=== PATIENT | female | born 1965 | race Two or more races ===

== ENCOUNTER 2024-04-09 16:38 | Emergency (ER) | payer MEDICAID, SELFPAY ==
[2024-04-09 17:06] VITALS: BP 135/79; PULSE 71; RESP 18; TEMP 36.8; O2SAT 97; BMI 34.8
--- NOTE | 2024-04-09 17:09 | XR_ITS ---
Examination: Knee, right , 3 views Technique: Knee AP, lateral, oblique 3 views Date and time of exam: 1716 hrs. Indications: Injury to the knee yesterday with knee pain. Findings: No fracture or dislocation Moderate narrowing medial joint space Small knee effusion Impression: No fracture or dislocation
--- NOTE | 2024-04-09 17:10 | EDNOTE_ITS ---
Lower Extremity Injury RME/HPI General Chief Complaint: Ankle/Foot Injury Stated Complaint: RIGHT FOOT PAIN X 2 WEEKS Time Seen by Provider: 04/09/24 16:44 Arrival date/time: 04/09/24 16:38 59 y.o. female reports with c/o right knee pain that radiates to right hip. Patient states that she was dancing and when she twisted she felt the pain in the knee no trauma no numbness or tingling loss of range of motion and no weakness. Patient states that she has been taking aspirin with no improvement of pain Limitations: no limitations Related Data Previous Rx's ?Medication ?Instructions ?Recorded blood ketone glucose monitor #1 ea 04/22/23 lancets 33 gauge #100 ea 04/22/23 lancets 30 gauge (Advocate Lancet) #200 ea 07/06/23 gabapentin 300 mg capsule 300 mg PO TID PRN nerve pain #90 08/22/23 caps fenofibrate 54 mg tablet 54 mg PO QDAY #90 tabs 11/14/23 metformin 500 mg tablet 500 mg PO BID 90 days #180 tabs 11/14/23 diclofenac sodium 1 % topical gel 2 g topical QID #100 grams 12/30/23 (Voltaren Arthritis Pain) blood sugar diagnostic (Blood #100 ea 01/10/24 Glucose Test strips) diclofenac sodium 1 % topical gel 2 g topical QID #100 grams 03/22/24 (Voltaren Arthritis Pain) lidocaine 5 % topical patch 1 patch topical QDAY #30 ea 03/22/24 meloxicam 7.5 mg tablet 7.5 mg PO QDAY #30 tabs 03/22/24 etodolac 400 mg tablet 400 mg PO BID PRN pain #30 tabs 04/09/24 Allergies Allergy/AdvReac Type Severity Reaction Status Date / Time No Known Allergies Allergy Verified 03/22/24 09:41 Review of Systems Constitutional Constitutional: Denies chills, Denies fatigue and Denies fever(s) Musculoskeletal Musculoskeletal: Reports arthralgias, Denies deformity, Denies joint swelling, Denies numbness and Denies tingling Integumentary/Breasts Skin/Breast: Denies unusual bruising and Denies wounds Neurologic Neurologic: Denies numbness and Denies tingling Endocrine Endocrine: Denies fatigue Past Medical History Past Medical History NEUROLOGIC: Negative Seizures CARDIAC: Negative Congestive Heart Failure RESPIRATORY: Negative Chronic Obstructive Pulmonary Disease (COPD) GENITOURINARY: Negative Renal Disease ENDOCRINE: Negative Diabetes Mellitus Type 1 or Diabetes Mellitus Type 2 OTHER HISTORY: Negative Blood Transfusions, Blood Transfusion Reaction, Anesthesia Reactions, Organ Transplant, Chemotherapy, Radiation Therapy or Hyperbaric Therapy Surgical History SURGICAL: Negative Organ Transplant Social History SMOKING STATUS: Never smoker SECOND HAND EXPOSURE: No ED Exam General Limitations: Present no limitations General appearance: Present alert and in no apparent distress Expanded Lower Extremity Exam Knee exam: Present normal inspection, full ROM and tenderness (Mild medial joint line tenderness right knee); Absent swelling, deformity, pain with valgus, laxity with valgus or pain with varus Neurological Exam Neurological exam: Present alert, oriented X3 and CN II-XII intact Psychiatric Psychiatric exam: Present normal affect and normal mood Skin Skin exam: Present warm, dry, intact and normal color Course Course Course Narrative: X-ray of the right knee is negative for fractures or dislocations Quality Measures none Orders Category Date Time Status immobilizer [Splint / Immobilizer] STAT Care 04/09/24 22:22 Active XR knee RT 3V Stat Exams 04/09/24 17:09 Completed Ibuprofen Tab [Motrin Tab] Med 04/09/24 18:23 Discontinued 800 mg PO X1 ONE Vital Signs Vital signs: Vital Signs Temperature 98.2 F 04/09/24 17:06 Pulse Rate 71 04/09/24 17:06 Respiratory Rate 18 04/09/24 17:06 Blood Pressure 135/79 H 04/09/24 17:06 Pulse Oximetry (%) 97 04/09/24 17:06 Oxygen Delivery Method Room Air 04/09/24 17:06 Extremity Injury, Lower Patient data External records reviewed:: None Clinical information provided by:: patient Social determinants that could affect healthcare access:: none Patient has the following chronic illnesses:: none How is presenting disease/condition affected by chronic disease/condition?: no chronic disease Evaluation data The following diagnostics were reviewed and interpreted by me:: radiology exam(s) Lab and/or radiology exams considered but not ordered:: none Interpretation Summary: Negative for fractures or dislocations of the right knee Medications / Prescriptions Medications or Prescriptions considered but not ordered:: none Medication administrations:: Medication Administration History Discontinued Medications Ibuprofen (Ibuprofen Tab 400 Mg Tablet) 800 mg PO X1 ONE Stop: 04/09/24 18:24 Last Admin: 04/09/24 18:36 Dose: 800 mg Documented By: OA Ibuprofen 800 mg p.o. x 1 Consultations Consultation(s) initiated? (list below): No Diagnosis Most likely diagnosis given after review of the tests above:: Right knee strain/sprain Admission Indicated Admission indicated?: not indicated Admission Request Was there a request for admission?: No Disposition Plan Disposition Plan: Discharge Discharge Attestation Discharge Attestation: The patient and all family members were given an opportunity to ask questions and understood the discharge instructions. Discharge instructions specifically effects, indications for sooner follow up or return to the emergency department, and the expected course of current diagnosis. Patient condition: Stable Discharge Plan Plan Patient Disposition: HOME (Self Care) Prescriptions/Referrals Prescriptions/Med Rec: New etodolac 400 mg tablet 400 mg PO BID PRN (Reason: pain) Qty: 30 0RF No Action fenofibrate 54 mg tablet 54 mg PO QDAY Qty: 90 1RF metformin 500 mg tablet 500 mg PO BID 90 Days Qty: 180 1RF diclofenac sodium [Voltaren Arthritis Pain] 1 % gel 2 g topical QID Qty: 100 0RF Rx Instructions: apply to single elbow, wrist or hand; for hand includes palm/fingers/back of hand (DME) lancets [Advocate Lancet] 30 gauge misc See Rx Instructions .Route Qty: 200 1RF Rx Instructions: As directed gabapentin 300 mg capsule 300 mg PO TID PRN (Reason: nerve pain) Qty: 90 0RF meloxicam 7.5 mg tablet 7.5 mg PO QDAY Qty: 30 0RF Rx Instructions: Directions in Citizen Of [place] lidocaine 5 % adhesive patch,medicated 1 patch topical QDAY Qty: 30 0RF Rx Instructions: leave on most painful area for up to 12 hrs diclofenac sodium [Voltaren Arthritis Pain] 1 % gel 2 g topical QID Qty: 100 0RF Rx Instructions: apply to area of concenrn (DME) blood ketone glucose monitor Device See Rx Instructions .Route Qty: 1 0RF Rx Instructions: As directed (DME) lancets 33 gauge misc See Rx Instructions .Route Qty: 100 2RF Rx Instructions: As directed (DME) Blood Glucose Test Strip See Rx Instructions .Route Qty: 100 3RF Rx Instructions: check glucose once a day Referrals: No Primary/Family,Physician [Referring Provider] - In 1 week Problem List Clinical Impression: Knee strain Patient/Caregiver Discharge Instructions Discharge Activity: activity as tolerated Education Materials: ED Knee Sprain Print Language: Citizen Of [place] Stand Alone Forms: Caroline Award Info., Patient Portal Info Letter MD Attestation MD Attestation The patient was seen by the midlevel practitioner. I, the co-signing physician, was present during the entire ER visit. While I did not physically examine the patient, I was available for consultation as needed.
[2024-04-09] MEDS: IBUPROFEN TAB 400 MG TABLET 800 MG PO (18:36)
== END 2024-04-09 18:52 | disposition home or self-care (01) ==
PROVIDERS: Emergency Provider Emergency Medicine; PCP Nurse Practitioner Primary Care
DX: S86.911A Strain of unspecified muscle(s) and tendon(s) at lower leg level, right leg, initial encounter (principal); X50.1XXA Overexertion from prolonged static or awkward postures, initial encounter
CPT/HCPCS: 73562; 99283; A9270

== ENCOUNTER → 2024-04-24 | Outpatient (BNVA) | payer MEDICAID, SELFPAY | END | disposition home or self-care (01) | PROVIDERS: PCP Nurse Practitioner Family; Referring Provider Nurse Practitioner Family; Visit Provider Nurse Practitioner Family | DX: E11.9 Type 2 diabetes mellitus without complications (principal); Z12.39 Encounter for other screening for malignant neoplasm of breast; E78.2 Mixed hyperlipidemia; Z71.2 Person consulting for explanation of examination or test findings; M25.561 Pain in right knee; Z91.148 Patient's other noncompliance with medication regimen for other reason; M19.041 Primary osteoarthritis, right hand; M19.042 Primary osteoarthritis, left hand | CPT/HCPCS: 99213 ==

== ENCOUNTER → 2024-05-07 | Outpatient (BNVA) | payer MEDICAID, SELFPAY | END | disposition home or self-care (01) | PROVIDERS: PCP Nurse Practitioner Primary Care; Referring Provider Nurse Practitioner Primary Care; Visit Provider Nurse Practitioner Primary Care | DX: E11.9 Type 2 diabetes mellitus without complications (principal); Z01.810 Encounter for preprocedural cardiovascular examination; E78.2 Mixed hyperlipidemia; Z91.199 Patient's noncompliance with other medical treatment and regimen due to unspecified reason; Z00.01 Encounter for general adult medical examination with abnormal findings; E66.9 Obesity, unspecified; Z13.1 Encounter for screening for diabetes mellitus; M19.041 Primary osteoarthritis, right hand; M19.042 Primary osteoarthritis, left hand; Z68.34 Body mass index [BMI] 34.0-34.9, adult | CPT/HCPCS: 93005; 99214 ==

== ENCOUNTER → 2024-05-22 | Outpatient (BNVA) | payer MEDICAID, SELFPAY | END | disposition home or self-care (01) | PROVIDERS: PCP Nurse Practitioner Primary Care; Referring Provider Nurse Practitioner Primary Care; Visit Provider Nurse Practitioner Primary Care | DX: M17.11 Unilateral primary osteoarthritis, right knee (principal) | CPT/HCPCS: 20610; 99213; J3301; J3490 ==

== ENCOUNTER → 2024-07-06 | Outpatient (CLI) | payer MEDICAID, SELFPAY ==
--- NOTE | 2024-07-06 14:15 | XR_ITS ---
Examination: Screening digital mammography, bilateral Computer aided detection 3-D breast Tomosynthesis, bilateral Date and time of exam: 06/28/2024, 2:02 PM Comparisons: Baseline exam. Indications: Screening Technique: Nonmagnified MLO, CC views of the breasts to been obtained, reconstructed from 3-D Tomosynthesis images. R2 computer aided detection program utilized for evaluation of suspicious masses and/or abnormal calcifications. 3-D Tomosynthesis images obtained. Technologist: Findings: There are scattered areas of fibroglandular density. Asymmetry anterior outer left breast, 2.5 cm from the nipple CC view. Otherwise, no evidence of abnormal masses or suspicious calcifications. Impression: Left asymmetry as above. Spot compression views and possible ultrasound evaluation recommended. BI-RADS category 0: Incomplete assessment; need additional imaging evaluation
== END | disposition home or self-care (01) ==
LOC: CDIM 13:55
PROVIDERS: Referring Provider Nurse Practitioner Primary Care; Visit Provider Nurse Practitioner Primary Care
DX: Z12.31 Encounter for screening mammogram for malignant neoplasm of breast (principal); R92.8 Other abnormal and inconclusive findings on diagnostic imaging of breast; N64.89 Other specified disorders of breast
CPT/HCPCS: 77063; 77067

== ENCOUNTER → 2024-08-07 | Outpatient (BNVA) | payer MEDICAID, SELFPAY | END | disposition home or self-care (01) | PROVIDERS: PCP Nurse Practitioner Primary Care; Referring Provider Nurse Practitioner Primary Care; Visit Provider Nurse Practitioner Primary Care | DX: R92.8 Other abnormal and inconclusive findings on diagnostic imaging of breast (principal) | CPT/HCPCS: 99213 ==

== ENCOUNTER 2024-08-10 05:31 | Emergency (ER) | payer MEDICAID, SELFPAY ==
[2024-08-10 05:50] VITALS: BP 156/77; PULSE 69; RESP 17; TEMP 36.7; O2SAT 96
--- NOTE | 2024-08-10 06:15 | XR_ITS ---
Examination: PA and lateral chest 2 views TECHNIQUE: Upright PA and lateral chest 2 views Exam date and time: August 10, 2024 at 0632 hours INDICATIONS: Coughing and fever beginning 5 days ago. FINDINGS: Normal heart size. Lungs are clear. The osseous structures are intact IMPRESSION: No active disease
--- NOTE | 2024-08-10 06:16 | EDNOTE_ITS ---
Upper Respiratory Inf. RME/HPI General Chief Complaint: Flu Like Symptoms Stated Complaint: FLU LIKE SYMPTOMS X4 DAYS Time Seen by Provider: 08/10/24 06:16 Source: patient Arrival date/time: 08/10/24 05:31 59-year-old female with a history of type 2 diabetes, presents to the emergency room with a chief complaint of coughing and congestion x 4 days. Mode of arrival: ambulatory Limitations: no limitations Related Data Home Medications ?Medication ?Instructions ?Recorded ?Confirmed atorvastatin 20 mg tablet 20 mg PO QHS 05/07/24 Previous Rx's ?Medication ?Instructions ?Recorded blood ketone glucose monitor #1 ea 04/22/23 lancets 33 gauge #100 ea 04/22/23 lancets 30 gauge (Advocate Lancet) #200 ea 07/06/23 gabapentin 300 mg capsule 300 mg PO TID PRN nerve pain #90 08/22/23 caps diclofenac sodium 1 % topical gel 2 g topical QID #100 grams 12/30/23 (Voltaren Arthritis Pain) blood sugar diagnostic (Blood #100 ea 01/10/24 Glucose Test strips) diclofenac sodium 1 % topical gel 2 g topical QID #100 grams 03/22/24 (Voltaren Arthritis Pain) fenofibrate 54 mg tablet 54 mg PO QDAY #90 tabs 04/24 meloxicam 7.5 mg tablet 7.5 mg PO QDAY #30 tabs 06/02 promethazine-DM 6.25 mg-15 mg/5 mL 5 ml PO Q6H PRN cou gh #473 mL 08/07/24 oral syrup benzonatate 100 mg capsule 100 mg PO BID PRN cough #14 caps 08/10/24 Allergies Allergy/AdvReac Type Severity Reaction Status Date / Time No Known Allergies Allergy Verified 08/07/24 15:39 Review of Systems Review of Systems Systems Reviewed: All systems reviewed, normal except as documented Constitutional Constitutional: Reports system reviewed and no additional complaints, except as documented, Denies fatigue, Denies fever(s), Denies headache(s) and Denies weakness Eyes Eyes: Reports system reviewed and no additional complaints, except as documented, Denies blurry vision and Denies change in vision ENT Ears, Nose, Mouth, and Throat: Reports system reviewed and no additional complaints, except as documented, Denies otalgia, Denies headache(s), Denies n jam congestion, Denies throat swelling and Denies vertigo Cardiovascular Cardiovascular: Reports system reviewed and no additional complaints, except as documented, Denies chest pain, Denies dyspnea and Denies dyspnea on exertion Respiratory Respiratory: Reports system reviewed and no additional complaints, except as documented, Reports chest congestion, Reports cough, Denies dyspnea, Denies dyspnea on exertion and Denies wheezing Gastrointestinal Gastrointestinal: Reports system reviewed and no additional complaints, except as documented, Denies abdominal pain, Denies cramping, Denies nausea and Denies vomiting Genitourinary Genitourinary: Reports system reviewed and no additional complaints, except as documented Musculoskeletal Musculoskeletal: Reports system reviewed and no additional complaints, except as documented and Denies back pain Integumentary/Breasts Skin/Breast: Reports system reviewed and no additional complaints, except as documented and Denies wounds Neurologic Neurologic: Reports system reviewed and no additional complaints, except as documented, Denies confusion, Denies headache(s), Denies lack of coordination, Denies vertigo and Denies weakness Psychiatric Psychiatric: Reports system reviewed and no additional complaints, except as documented, Denies anxiety, Denies confusion, Denies depression, Denies paranoia, Denies suicidal ideation and Denies tactile hallucinations Endocrine Endocrine: Reports system reviewed and no additional complaints, except as documented and Denies fatigue Hematologic/Lymphatic Hematologic/Lymphatic: Reports system reviewed and no additional complaints, except as documented and Denies lymphadenopathy Allergic/Immunologic Allergic/Immunologic: Reports system reviewed and no additional complaints, except as documented, Denies throat swelling, Denies urticaria and Denies wheezing Past Medical History Past Medical History NEUROLOGIC: Negative Seizures CARDIAC: Negative Congestive Heart Failure RESPIRATORY: Negative Chronic Obstructive Pulmonary Disease (COPD) GENITOURINARY: Negative Renal Disease ENDOCRINE: Negative Diabetes Mellitus Type 1 or Diabetes Mellitus Type 2 OTHER HISTORY: Negative Blood Transfusions, Blood Transfusion Reaction, Anesthesia Reactions, Organ Transplant, Chemotherapy, Radiation Therapy or Hyperbaric Therapy Surgical History SURGICAL: Negative Organ Transplant Social History SMOKING STATUS: Never smoker SECOND HAND EXPOSURE: No ED Exam General Limitations: Present no limitations General appearance: Present alert and in no apparent distress Head Head exam: Present atraumatic Eye Eye exam: Present normal appearance, PERRL and EOMI ENT ENT exam: Present normal exam, normal oropharynx and mucous membranes moist Neck Neck exam: Present normal inspection, full ROM and trachea midline Chest Chest inspection: Present normal inspection and symmetric chest wall rise Respiratory Respiratory exam: Present normal lung sounds bilaterally; Absent respiratory distress, wheezes, stridor, accessory muscle use or prolonged expiratory phase Cardiovascular Cardiovascular exam: Present regular rate, normal rhythm and normal heart sounds; Absent tachycardia Abdominal Exam Abdominal exam: Present soft and normal bowel sounds Extremities Exam Extremities exam: Present normal inspection and full ROM Back Exam Back exam: Present normal inspection and full ROM Neurological Exam Neurological exam: Present alert, oriented X3 and CN II-XII intact Psychiatric Psychiatric exam: Present normal affect and normal mood Skin Skin exam: Present warm, dry, intact and normal color Course Quality Measures none Orders Category Date Time Status Bedside COVID-19 Antigen Test NOW Care 08/10/24 05:37 Active Bedside COVID-19 Antigen Test NOW Care 08/10/24 06:15 Completed Bedside Influenza A&B Antigen Test NOW Care 08/10/24 05:37 Completed Bedside Influenza A&B Antigen Test NOW Care 08/10/24 06:15 Completed XR chest 2V Stat Exams 08/10/24 06:15 Completed Vital Signs Vital signs: Vital Signs Temperature 98.1 F 08/10/24 05:50 Pulse Rate 69 08/10/24 05:50 Respiratory Rate 17 08/10/24 05:50 Blood Pressure 156/77 H 08/10/24 05:50 Pulse Oximetry (%) 96 08/10/24 05:50 Oxygen Delivery Method Room Air 08/10/24 05:50 O2 saturation 96% within normal limits Upper Respiratory Infection MDM Narrative MDM Narrative:: 59-year-old female with a history of type 2 diabetes, presents to the emergency room with a chief complaint of coughing and congestion x 4 days. Patient is hemodynamically stable and in no apparent distress. She is not tachycardic not tachypneic afebrile and her O2 saturation is 96% on room air Physical examination shows clear bilateral lung sounds there is no wheezing or any abnormal breath sounds Chest x-ray was negative for any pneumonic infiltrates. COVID-19 and influenza were both negative Patient was discharged and educated to follow-up with primary care provider in the next 24 to 48 hours and return to the emergency room for any evidence of worsening signs or symptoms Patient data External records reviewed:: [facility] previous records Clinical information provided by:: patient Social determinants that could affect healthcare access:: none Patient has the following chronic illnesses:: Type 2 diabetes How is presenting disease/condition affected by chronic disease/condition?: uneffected by Evaluation data The following diagnostics were reviewed and interpreted by me:: lab results and radiology exam(s) Lab and/or radiology exams considered but not ordered:: Labs and radiology exams considered and ordered Interpretation Summary: Chest x-ray-no pneumonic infiltrates Medications / Prescriptions Medications or Prescriptions considered but not ordered:: No medication given Medication administrations:: No medication given Consultations Consultation(s) initiated? (list below): No Diagnosis Upper Respiratory Differential Diagnosis: upper respiratory infection, viral infection, bronchitis and influenza Most likely diagnosis given after review of the tests above:: Upper respiratory infection Admission Indicated Admission indicated?: not indicated Admission Request Was there a request for admission?: No Disposition Plan Disposition Plan: Discharge Discharge Attestation Discharge Attestation: The patient and all family members were given an opportunity to ask questions and understood the discharge instructions. Discharge instructions specifically effects, indications for sooner follow up or return to the emergency department, and the expected course of current diagnosis. Patient condition: Stable Discharge Plan Plan Patient Disposition: HOME (Self Care) Disposition Comment: Stable Prescriptions/Referrals Prescriptions/Med Rec: New benzonatate 100 mg capsule 100 mg PO BID PRN (Reason: cough) Qty: 14 0RF No Action diclofenac sodium [Voltaren Arthritis Pain] 1 % gel 2 g topical QID Qty: 100 0RF Rx Instructions: apply to single elbow, wrist or hand; for hand includes palm/fingers/back of hand atorvastatin 20 mg tablet 20 mg PO QHS (DME) lancets [Advocate Lancet] 30 gauge misc See Rx Instructions .Route Qty: 200 1RF Rx Instructions: As directed gabapentin 300 mg capsule 300 mg PO TID PRN (Reason: nerve pain) Qty: 90 0RF diclofenac sodium [Voltaren Arthritis Pain] 1 % gel 2 g topical QID Qty: 100 0RF Rx Instructions: apply to area of concenrn fenofibrate 54 mg tablet 54 mg PO QDAY Qty: 90 0RF promethazine-DM 6.25-15 mg/5 mL syrup 5 ml PO Q6H PRN (Reason: cough) Qty: 473 0RF meloxicam 7.5 mg tablet 7.5 mg PO QDAY Qty: 30 0RF Rx Instructions: Directions in [place] (DME) blood ketone glucose monitor Device See Rx Instructions .Route Qty: 1 0RF Rx Instructions: As directed (DME) lancets 33 gauge misc See Rx Instructions .Route Qty: 100 2RF Rx Instructions: As directed (DME) Blood Glucose Test Strip See Rx Instructions .Route Qty: 100 3RF Rx Instructions: check glucose once a day Referrals: Koby LUCIANO,Di Esteves, [employer] OFFICER [Primary Care Provider] - In 1 week Problem List Clinical Impression: Upper respiratory infection, viral Patient/Caregiver Discharge Instructions Education Materials: ED URI, Viral, No Abx (Adult) Additional Instructions: Por favor, consulte con guo m?dico de cabecera en las pr?ximas 24 a 48 horas. Violetta pruebas de influenza y COVID-19 dieron negativo. Guo radiograf?a de t?rax fue negativa para neumon?a. El tratamiento es el control de los s?ntomas. Contin?e tomando Tylenol e ibuprofeno para controlar la fiebre. Aumente guo ingesta de l?quidos por v?a oral. Ante cualquier signo de empeoramiento de los signos o s?ntomas, acuda a urgencias de inmediato. Print Language: [place] Stand Alone Forms: Caroline Award Info., Patient Portal Info Letter PA/[facility]CARE OFFICER Supervising Physician SANJEEV/[employer] OFFICER Supervising Physician: Dr Combs
== END 2024-08-10 08:02 | disposition home or self-care (01) ==
PROVIDERS: Emergency Provider Emergency Medicine; PCP Nurse Practitioner Family
DX: J06.9 Acute upper respiratory infection, unspecified (principal); E11.9 Type 2 diabetes mellitus without complications
CPT/HCPCS: 71046; 87400; 87811; 99283

== ENCOUNTER → 2024-08-14 | Outpatient (BNVA) | payer MEDICAID, SELFPAY | END | disposition home or self-care (01) | PROVIDERS: PCP Nurse Practitioner Primary Care; Referring Provider Nurse Practitioner Primary Care; Visit Provider Nurse Practitioner Primary Care | DX: E11.9 Type 2 diabetes mellitus without complications (principal); E78.2 Mixed hyperlipidemia; Z71.2 Person consulting for explanation of examination or test findings; J30.2 Other seasonal allergic rhinitis | CPT/HCPCS: 96372; 99214; J3301 ==

== ENCOUNTER → 2024-11-06 | Outpatient (BNVA) | payer MEDICAID, SELFPAY | END | disposition home or self-care (01) | PROVIDERS: PCP Nurse Practitioner Family; Referring Provider Nurse Practitioner Family; Visit Provider Nurse Practitioner Family | DX: E78.2 Mixed hyperlipidemia (principal); K21.9 Gastro-esophageal reflux disease without esophagitis | CPT/HCPCS: 99212; G0463 ==

== ENCOUNTER → 2024-11-14 | Outpatient (BNVA) | payer MEDICAID, SELFPAY | END | disposition home or self-care (01) | PROVIDERS: PCP Nurse Practitioner Family; Referring Provider Nurse Practitioner Family; Visit Provider Nurse Practitioner Family | DX: G47.00 Insomnia, unspecified (principal); E66.9 Obesity, unspecified; E11.9 Type 2 diabetes mellitus without complications; E66.09 Other obesity due to excess calories; Z68.35 Body mass index [BMI] 35.0-35.9, adult; Z28.21 Immunization not carried out because of patient refusal; Z91.148 Patient's other noncompliance with medication regimen for other reason | CPT/HCPCS: 99215 ==

== ENCOUNTER → 2024-11-30 | Outpatient (BNVA) | payer MEDICAID, SELFPAY | END | disposition home or self-care (01) | PROVIDERS: PCP Nurse Practitioner Primary Care; Referring Provider Nurse Practitioner Primary Care; Visit Provider Nurse Practitioner Primary Care | DX: E11.9 Type 2 diabetes mellitus without complications (principal); E55.9 Vitamin D deficiency, unspecified; E78.2 Mixed hyperlipidemia | CPT/HCPCS: 99212; G0463 ==

== ENCOUNTER → 2025-03-13 | Outpatient (BNVA) | payer MEDICAID, SELFPAY | END | disposition home or self-care (01) | PROVIDERS: PCP Nurse Practitioner Primary Care; Referring Provider Nurse Practitioner Primary Care; Visit Provider Nurse Practitioner Primary Care | DX: E11.9 Type 2 diabetes mellitus without complications (principal); E78.2 Mixed hyperlipidemia; K21.9 Gastro-esophageal reflux disease without esophagitis; M54.41 Lumbago with sciatica, right side; Z28.21 Immunization not carried out because of patient refusal | CPT/HCPCS: 99213 ==

== ENCOUNTER → 2025-04-10 | Outpatient (BNVA) | payer MEDICAID, SELFPAY | END | disposition home or self-care (01) | PROVIDERS: PCP Nurse Practitioner Primary Care; Referring Provider Nurse Practitioner Primary Care; Visit Provider Nurse Practitioner Primary Care | DX: M54.41 Lumbago with sciatica, right side (principal); Z28.21 Immunization not carried out because of patient refusal; M41.86 Other forms of scoliosis, lumbar region | CPT/HCPCS: 99214 ==

== ENCOUNTER → 2025-04-30 | Outpatient (BNVA) | payer MEDICAID, SELFPAY | END | disposition home or self-care (01) | PROVIDERS: PCP Nurse Practitioner Family; Referring Provider Nurse Practitioner Family; Visit Provider Nurse Practitioner Family | DX: Z00.00 Encounter for general adult medical examination without abnormal findings (principal); M25.562 Pain in left knee; E11.9 Type 2 diabetes mellitus without complications; E78.2 Mixed hyperlipidemia; M25.561 Pain in right knee; G89.29 Other chronic pain; Z91.199 Patient's noncompliance with other medical treatment and regimen due to unspecified reason; M19.041 Primary osteoarthritis, right hand; Z71.3 Dietary counseling and surveillance; E66.812 Obesity, class 2; Z68.35 Body mass index [BMI] 35.0-35.9, adult | CPT/HCPCS: 93005; 99173; 99396; G0439 ==

== ENCOUNTER → 2025-05-06 | Outpatient (CLI) | payer MEDICAID, SELFPAY ==
--- NOTE | 2025-05-06 09:47 | XR_ITS ---
Examination: Knee, left, 3 views Technique: Knee AP, lateral, oblique 3 views Date and time of exam: May 06, 2025, 1011 hours INDICATIONS: Left knee pain beginning 10 days ago. FINDINGS: Mild to moderate narrowing medial joint space No fracture or dislocation Small knee effusion IMPRESSION: Mild to moderate narrowing medial joint space
== END | disposition home or self-care (01) ==
LOC: CDIM 09:36
PROVIDERS: PCP Nurse Practitioner Primary Care; Referring Provider Nurse Practitioner Primary Care; Visit Provider Nurse Practitioner Primary Care
DX: M25.862 Other specified joint disorders, left knee (principal)
CPT/HCPCS: 73562

== ENCOUNTER → 2025-05-07 | Outpatient (BNVA) | payer MEDICAID, SELFPAY | END | disposition home or self-care (01) | PROVIDERS: PCP Nurse Practitioner Family; Referring Provider Nurse Practitioner Family; Visit Provider Nurse Practitioner Family | DX: M25.562 Pain in left knee (principal); M19.042 Primary osteoarthritis, left hand | CPT/HCPCS: 99213 ==